=== PATIENT | male | born 1990 | race Two or more races ===

== ENCOUNTER 2017-03-11 18:27 | Emergency (ER) | payer BC ==
[2017-03-11 18:37] VITALS: RESP 18; TEMP 98.2; O2SAT 98
--- NOTE | 2017-03-11 19:06 | EDPHY ---
H & P Time Seen by Provider: 03/11/17 18:45 HPI/ROS: CHIEF COMPLAINT: Left arm pain HISTORY OF PRESENT ILLNESS: Patient is a 26-year-old male who presents to the emergency department with left arm pain. He states he feels like there is a "blood pressure cuff on his forearm." Discomfort is minimal. It does not radiate. He has no numbness or tingling. He denies any noted discoloration. He has no chest pain or shortness of breath. No recent trauma. Patient's symptoms started after hiking. His headache is resolved and a symptoms started. Patient states his father had heart attack at a young age. (At 35). REVIEW OF SYSTEMS: My complete review of systems is negative except as mentioned in the HPI. Past Medical/Surgical History: Negative Past surgical history: Negative Social history: Patient does not smoke. He denies drug or alcohol use. Smoking Status: Never smoked Physical Exam: Vitals noted GENERAL: Well-appearing, in no acute distress, alert. HEENT: Eyes normal to inspection, normal pharynx, no signs of dehydration. NECK: No thyromegaly, no lymphadenopathy, supple. RESPIRATORY: Clear to auscultation bilaterally, no rales, rhonchi or wheezing. CVS: Regular rate and rhythm, no rubs, murmurs, or gallops. ABDOMEN: Soft, nontender, nondistended, no organomegaly. BACK: Normal to inspection, no CVA tenderness. SKIN: Normal color, no rash, warm, dry. No pallor. EXTREMITIES: No pedal edema, no calf tenderness, no Homans sign or cords, no joint swelling. Patient's left upper extremity appears normal. There is no swelling or discoloration. He is neurovascularly intact distally. NEURO/PSYCH: Alert and oriented, normal mood and affect, normal motor sensory exam. Constitutional: Initial Vital Signs Temperature (C) 36.8 C 03/11/17 18:30 Heart Rate 96 03/11/17 18:30 Respiratory Rate 18 03/11/17 18:30 Blood Pressure 148/89 H 03/11/17 18:30 O2 Sat (%) 98 03/11/17 18:30 O2 Delivery Mode Room Air Allergies/Adverse Reactions: ciprofloxacin [From Cipro] Allergy (Intermediate, Verified 03/11/17 18:34) palpitations Home Medications: Medication Instructions Recorded NK [No Known Home Meds] 03/11/17 Medical Decision Making ED Course/Re-evaluation: In the emergency department I discussed possible etiologies with the patient. Patient consented to an EKG. EKG shows normal sinus rhythm, normal rate, normal axis, normal intervals. There are no ST or T-wave abnormalities. EKG is normal as interpreted by me. I discussed the results with the patient. On repeat exam the patient had no abnormalities in his upper extremity. I do not feel the patient needs laboratory studies further imaging at this time. I discussed this with the patient. I gave him warnings. He will return with worsening symptoms. Differential Diagnosis: Differential includes but is not limited to DVT, arterial occlusion, muscle strain, ACS, acute IA Departure - Departure Disposition: Home, Routine, Self-Care Clinical Impression: Left arm pain Condition: Good Instructions: Arm Pain (ED) Additional Instructions: Return with increasing pain, swelling, redness, numbness, tingling or any other concerns. Referrals: [facility],UNKNOWN [Other] - 3-4 days, if not improved
--- NOTE | 2017-03-11 19:18 | CPEKG ---
Heart Rate: 91 RR Interval: 659 P-R Interval: 140 QRSD Interval: 86 QT Interval: 360 QTC Interval: 443 P [place]: 58 QRS [place]: 16 T Wave [place]: 6 EKG Severity - NORMAL ECG - EKG Impression: SINUS RHYTHM Electronically Signed By: Janine Frey 11-Mar-2017 20:05:46
[2017-03-11 20:18] VITALS: BP 157/87; PULSE 92
== END 2017-03-11 20:18 | disposition home or self-care (01) ==
DX: M79.602 Pain in left arm (principal)